=== PATIENT | male | born 1985 | race Caucasian/White ===

== ENCOUNTER 2017-04-17 13:47 | Emergency (ER) | payer OTHER ==
[~2017-04-17] VITALS: Ht 177.8 cm; Wt 102.3 kg
[2017-04-17] MEDS ORDERED: GABA-279 PO (14:46)
[2017-04-17] MEDS ORDERED: ATOR1TAB19 PO (14:46)
[2017-04-17] MEDS ORDERED: LEVO50TA5 PO (14:46)
[2017-04-17] MEDS ORDERED: ATOR1TAB21 PO (14:46)
[2017-04-17] MEDS ORDERED: DONETAB5 PO (14:46)
[2017-04-17] MEDS ORDERED: BUPR1TAB52 PO (14:46)
[2017-04-17] MEDS ORDERED: FLUO10CA8 PO (14:46)
[2017-04-17] MEDS ORDERED: BUPR150T3 PO (14:46)
[2017-04-17] MEDS ORDERED: PERCOCET 5MG/325MG TAB PO ONE ×2 (15:30→18:15)
--- NOTE | 2017-04-17 16:31 | REP ---
Clinical: Trauma. Technique: AP, lateral, bilateral oblique and sunrise views of the right knee. Findings: Evaluation is significantly limited by prior surgery and post traumatic arthritic degenerative changes. AP view cannot exclude fracture along the lateral femoral condyle. Diffuse soft tissue swelling is appreciated. [place] view demonstrates complete lateral dislocation to the patella with overlying soft tissue swelling. Impression: 1. Chronic advanced arthritic degenerative changes and evidence for prior surgery. 2. Acute soft tissue swelling and complete lateral displacement to the patella. Fracture involving the knee and specifically the lateral femoral condyle cannot be excluded. Signed by Agustin Yo MD 04/17/2017 04:22 P
--- NOTE | 2017-04-17 16:32 | REP ---
Clinical: Trauma. Technique: AP, lateral, bilateral oblique views of the right wrist. Findings: There is a comminuted impaction fracture involving the distal radial metaphysis with mild posterior angulation. The carpal bones appear intact. The distal ulna appears intact. Impression: Comminuted impacted fracture involving the distal radial metaphysis with subtle posterior angulation. Signed by Agustin Yo MD 04/17/2017 04:23 P
--- NOTE | 2017-04-17 16:44 | REP ---
Clinical: Trauma. Technique: AP and frog lateral views of the right femur. Findings: Moderate chronic flattening and blunting to the right hip joint may be secondary to avascular necrosis and should be correlated with physical examination and history. Findings do not appear acute. There is no evidence for acute fracture or dislocation. Postsurgical changes involving the knee are also identified. Impression: Possible chronic avascular necrosis with chronic flattening to the right hip. Postsurgical changes involving the right knee. No obvious acute fracture dislocation. Signed by Agustin Yo MD 04/17/2017 04:35 P
[2017-04-17] MEDS ORDERED: NS 1,000 ML IV ONE (18:30)
[2017-04-17] MEDS ORDERED: MORPHINE 4 MG/ML 1ML SYRINGE IV ONE (18:45)
[2017-04-17] MEDS ORDERED: ONDANSETRON 4MG/2ML VIAL (J2405) IV ONE (18:45)
[2017-04-17 19:35] LABS: ALBUMIN 4.1 GM/DL (3.2-5.2); ALBUMIN/GLOBULIN RATIO 1.03 (1.00-1.93); ALKALINE PHOSPHATASE 87 U/L (45-117); ALT/SGPT 40 U/L (12-78); ANION GAP 9 MEQ/L (8-16); AST/SGOT 24 U/L (15-37); BILIRUBIN,DIRECT < 0.1 MG/DL (0.0-0.2); BILIRUBIN,TOTAL 0.2 MG/DL (0.2-1.0); BLOOD UREA NITROGEN 16 MG/DL (7-18); CALCIUM LEVEL 8.7 MG/DL (8.5-10.1); CARBON DIOXIDE LEVEL 24 MEQ/L (21-32); CHLORIDE LEVEL 107 MEQ/L (98-107); CREATININE FOR GFR 1.18 MG/DL (0.70-1.30); GLOMERULAR FILTRATION RATE > 60.0 (>60); GLUCOSE, FASTING 109 MG/DL (70-105); POTASSIUM SERUM 3.9 MEQ/L (3.5-5.1); SODIUM LEVEL 140 MEQ/L (136-145); TOTAL PROTEIN 8.1 GM/DL (6.4-8.2)
[2017-04-17 20:09] LABS: MEAN CORPUSCULAR HEMOGLOBIN 31.1 pg (27.0-33.0); MEAN CORPUSCULAR HGB CONC 35.7 g/dl (32.0-36.5); MEAN CORPUSCULAR VOLUME 87.3 fl (80.0-96.0); RED CELL DISTRIBUTION WIDTH 13.6 % (11.5-14.5); WHITE BLOOD COUNT 11.2 K/mm3 (4.0-10.0)
[2017-04-17 20:30] VITALS: BP 164/101
[2017-04-17 20:34] LABS: BASOPHILS 1 % (0-4)
== END 2017-04-17 20:32 | disposition short-term general hospital (02) ==
LOC: M ED 13:47
DX: S72.424A Nondisplaced fracture of lateral condyle of right femur, initial encounter for closed fracture (principal); S83.094A Other dislocation of right patella, initial encounter; S62.101A Fracture of unspecified carpal bone, right wrist, initial encounter for closed fracture; Z86.73 Personal history of transient ischemic attack (TIA), and cerebral infarction without residual deficits; W10.8XXA Fall (on) (from) other stairs and steps, initial encounter; Y92.89 Other specified places as the place of occurrence of the external cause; Y93.01 Activity, walking, marching and hiking; Y99.9 Unspecified external cause status
CPT/HCPCS: 73110; 73552; 73564; 80048; 80076; 85007; 85027; 85610; 85730; 86850; 86900; 86901; 96374; 96375; 99284; J2405; J3360